=== PATIENT | male | born 1970 | race Caucasian/White ===

== ENCOUNTER 2022-11-14 00:49 | Emergency (ER) | payer OTHER ==
[2022-11-14] MEDS ORDERED: Bacitracin Oint 1 GM U/D Packet TOP ONE (01:16)
[2022-11-14] MEDS ORDERED: Lidocaine 1% with EPINEPHrine 1:100,000 50 ML MDV INFILT STA (01:16)
== END 2022-11-14 01:55 | disposition home or self-care (01) ==
LOC: JP.ED 00:49
DX: S01.21XA Laceration without foreign body of nose, initial encounter (principal); Z86.16 Personal history of COVID-19; W22.8XXA Striking against or struck by other objects, initial encounter
CPT/HCPCS: 12011; 99282